=== PATIENT | female | born 1980 | race Caucasian/White ===

== ENCOUNTER 2016-09-20 17:59 | Emergency (ER) | payer OTHER ==
[2016-09-20 18:21] VITALS: BP 141/98
--- NOTE | 2016-09-20 18:59 | ERNOTE ---
Medical Problem HPI - Narrative Date of Service: 09/20/16 - General Chief Complaint: General Assessment Time Seen by Provider: 09/20/16 18:14 Source: patient Exam Limitations: no limitations - Immun/Allergies/Home Medications Immunizations: IMMUNIZATION HX Immunizations Up to Date Yes History of Influenza Vaccine No Hx Pneumococcal Vaccination No Allergies/Adverse Reactions: Allergies atropine sulfate [From ] Allergy (Verified 09/20/16 18:21) rash hyoscyamine sulfate [From ] Allergy (Verified 09/20/16 18:21) rash phenobarbital [From ] Allergy (Verified 09/20/16 18:21) rash scopolamine hydrobromide [From ] Allergy (Verified 09/20/16 18:21) rash Home Medications: HOME MEDICATIONS buPROPion HCL [Wellbutrin] 150 mg PO 09/20/16 [Last Taken Unknown] - History of Present History Narrative: 36-year-old female presents to the emergency room states she was outside when a bug flew in her ear and she feels that there is a bug in her right ear still Date (Duration): 09/20/16 Timing: constant Severity: mild Review of Systems - Review of Systems Constitutional: Present: no symptoms reported EYE: Present: no symptoms reported ENT: Present: ear pain - states she can feel a bug in her ear. Respiratory: Present: no symptoms reported Cardiology: Present: no symptoms reported Gastrointestinal/Abdominal: Present: no symptoms reported Genitourinary: Present: no symptoms reported Musculoskeletal: Present: no symptoms reported Skin: Present: no symptoms reported Neurological: Present: no symptoms reported Endocrine: Present: no symptoms reported Hematologic/Lymphatic: Present: no symptoms reported Psych: Present: no symptoms reported - Patient's Past Medical History Patient History - Medical: No pertinent hx Patient History - Cardiac/Respiratory: No pertinent hx Patient History - Cancer: No Hx of Cancer Patient History - Surgical Procedures: Hernia Repair Patient History - Other: None LMP (females 10-50): other - Social History Living Situations: home Psych History: No pertinent hx - Immunizations Immunizations Up to Date: Yes Hx Pneumococcal Vaccination: No History of Influenza Vaccine: No Physical Exam - Physical Exam Narrative: Right ear canal observed. No bug or abrasion to ear observed General Appearance: Present: wd/wn, alert, no apparent distress Eye Exam: Normal inspection: bilateral Ears, Nose, Throat: Present: normal ENT inspection Neck: Present: normal inspection Respiratory: Present: no respiratory distress, lungs clear Cardiovascular/Chest: Present: regular rate, rhythm Gastrointestinal/Abdominal: Present: soft Back Exam: Present: normal range of motion Extremity Exam: Present: normal inspection Neurological Exam: Present: alert, oriented, normal mood/affect Skin Exam: Present: normal color, warm/dry Lymphatic Exam: Present: no adenopathy ED Progress - Date and Time Seen: Date and Time: 09/20/16 19:36 ear flushed with no results of object. patient states it does feel better. - Vital Signs Vital Signs: Vital Signs 09/20/16 18:16 Temperature 37.4 C Pulse Rate 98 Respiratory 16 Rate Blood Pressure 141/98 O2 Sat by Pulse 97 Oximetry - Progress/Reassessment Chief Complaint: General Assessment Progress:: Improved Departure - Departure Clinical Impression: Ear foreign body Qualifiers: Encounter type: initial encounter Laterality: right Qualified Code(s): T16.1XXA - Foreign body in right ear, initial encounter Disposition: Home self-care Condition: Stable Instructions: Ear Foreign Body Additional Instructions: Continue any previous home medications as needed. Return to the emergency room if symptoms persist. Follow-up with your primary care in the next 2-3 days if needed. Referrals: Marquez Donaldson DO [Primary Care Provider] -
== END 2016-09-20 19:03 | disposition home or self-care (01) ==
LOC: ER 17:59
DX: T16.1XXA Foreign body in right ear, initial encounter (principal); X58.XXXA Exposure to other specified factors, initial encounter